=== PATIENT | female | born 1990 ===

== ENCOUNTER 2020-03-20 12:35 | Observation (INO) ==
[2020-03-20 11:14] LABS: Basophils # 0.1 K/mcL (0.0-0.2); Basophils % 0.9 %; Eosinophils # 0.1 K/mcL (0.0-0.6); Eosinophils % 0.7 %; Hematocrit 32.9 % (35.3-44.9); Hemoglobin 10.5 g/dL (11.5-15.4); Immature Granulocytes % 3.9 % (0-4); Lymphocytes # 1.4 K/mcL (0.6-4.6); Lymphocytes % 16.4 %; Mean Corpuscular HGB Conc 31.9 g/dL (31.6-35.5); Mean Corpuscular Hemoglobin 27.7 pg (28.0-33.3); Mean Corpuscular Volume 86.8 fL (83.0-100.0); Mean Platelet Volume 9.3 fL (9.4-12.4); Monocytes # 0.6 K/mcL (0.0-1.3); Platelet Count 278 K/mcL (140-400); Red Blood Count 3.79 M/mcL (3.82-4.97); Red Cell Distribution Width 14.5 % (11.5-14.5); Segmented Neutrophils % 71.1 %; White Blood Count 8.5 K/mcL (4.3-11.1)
[2020-03-20 11:28] LABS: Alanine Aminotransferase 7 Units/L (7-52); Aspartate Amino Transferase 12 Units/L (13-39); BUN/Creatinine Ratio 15 (6-26); Blood Urea Nitrogen 7 mg/dL (6-20); Lactate Dehydrogenase 113 Units/L (140-271); Uric Acid 4.6 mg/dL (2.3-7.6); eGFR For African Americans > 60 (> 60); eGFR For Non-African Americans > 60 (> 60)
[2020-03-20 11:49] LABS: Protein/Creatinine Ratio,Urine 0.2 mg/mg (0.00-0.20)
[2020-03-20] MEDS: Betamethasone Acet/SodPhos 30 MG/5 ML VIAL IM SCH (12:50)
[2020-03-20] MEDS ORDERED: Ringers Solution, Lactated 1,000 ML ONE (14:13)
[2020-03-21] MEDS: Betamethasone Acet/SodPhos 30 MG/5 ML VIAL IM SCH (12:29)
[2020-03-21 12:50] LABS: Total Volume 24 Hour,Urine 4.16 Liters (0.60-1.60)
== END 2020-03-21 12:42 | disposition home or self-care (01) ==
LOC: 1NENULAB
PROVIDERS: ADMIT Obstetrics & Gynecology; ATTEND Obstetrics & Gynecology

== ENCOUNTER 2020-04-19 08:00 | Inpatient (IN) ==
[2020-04-19] MEDS ORDERED: Famotidine 20 MG/2 ML VIAL IVP PRN (08:29)
[2020-04-19] MEDS ORDERED: Naloxone 0.4 MG/ML INJ IVP PRN (08:29)
[2020-04-19] MEDS ORDERED: Azithromycin 500 MG in 0.9 % Sodium Chloride 250 ML IVPB ONE (08:29)
[2020-04-19] MEDS ORDERED: *HR* FentaNYL (PF) 100 MCG/2 ML VIAL IVP PRN (08:29)
[2020-04-19] MEDS ORDERED: Ondansetron 4 MG/2 ML VIAL IVP PRN (08:29)
[2020-04-19] MEDS ORDERED: Metoclopramide 10 MG/2 ML VIAL IVP PRN (08:29)
[2020-04-19] MEDS ORDERED: Lidocaine 1% 20 ML MDV ID PRN (08:29)
[2020-04-19] MEDS ORDERED: Ringers Solution, Lactated 1,000 ML IVC SCH (08:30)
[2020-04-19] MEDS ORDERED: Oxytocin 20 units/ LR 1000 mL 20 UNIT/1,000 ML BAG IVC SCH ×2 (08:45→23:23)
[2020-04-19 08:53] LABS: Basophils # 0.1 K/mcL (0.0-0.2); Basophils % 0.6 %; Eosinophils # 0.1 K/mcL (0.0-0.6); Eosinophils % 0.8 %; Hematocrit 35.1 % (35.3-44.9); Immature Granulocytes % 2.2 % (0-4); Lymphocytes # 1.6 K/mcL (0.6-4.6); Lymphocytes % 16.1 %; Mean Corpuscular HGB Conc 31.3 g/dL (31.6-35.5); Mean Corpuscular Volume 86.2 fL (83.0-100.0); Mean Platelet Volume 9.8 fL (9.4-12.4); Monocytes # 0.9 K/mcL (0.0-1.3); Monocytes % 9.1 %; Platelet Count 253 K/mcL (140-400); Red Blood Count 4.07 M/mcL (3.82-4.97); Red Cell Distribution Width 15.2 % (11.5-14.5); Segmented Neutrophils % 71.2 %; White Blood Count 9.9 K/mcL (4.3-11.1)
[2020-04-19 08:55] LABS: Protein/Creatinine Ratio,Urine 0.31 mg/mg (0.00-0.20)
[2020-04-19 09:06] LABS: Alanine Aminotransferase 5 Units/L (7-52); Aspartate Amino Transferase 11 Units/L (13-39); BUN/Creatinine Ratio 14 (6-26); Blood Urea Nitrogen 6 mg/dL (6-20); Lactate Dehydrogenase 122 Units/L (140-271); Uric Acid 4.9 mg/dL (2.3-7.6); eGFR For African Americans > 60 (> 60); eGFR For Non-African Americans > 60 (> 60)
[2020-04-19 09:59] LABS: Amphetamine Screen,Urine Negative ng/mL (Cutoff=1000); Barbiturate Screen,Urine Negative ng/mL (Cutoff=200); Benzodiazepines Screen,Urine Negative ng/mL (Cutoff=200); Cannabinoid Screen,Urine Negative ng/mL (Cutoff = 50); Cocaine Screen,Urine Negative ng/mL (Cutoff= 300); Opiate Screen,Urine Negative ng/mL (Cutoff=300); Phencyclidine Screen,Urine Negative ng/mL (Cutoff=25)
[2020-04-19] MEDS ORDERED: EPHEDrine 50 MG/ML VIAL IVP PRN (12:14)
[2020-04-19] MEDS ORDERED: Epidural Premix (fent/bupiv) 110 ML EP SCH (12:15)
[2020-04-19] MEDS ORDERED: *HR* FentaNYL (PF) 100 MCG/2 ML VIAL ONE (16:06)
[2020-04-19] MEDS ORDERED: Ropivacaine/PF 0.2% 20 ML VIAL ONE (16:07)
[2020-04-19] MEDS ORDERED: Rho Immune Globulin 1,500 UNIT SYRINGE IM PRN (23:23)
[2020-04-20] MEDS ORDERED: Acetaminophen 325 MG TABLET PO SCH
[2020-04-20] MEDS: Ibuprofen 600 MG TABLET PO SCH ×3 (00:28→21:18)
[2020-04-20 06:56] LABS: Basophils # 0.1 K/mcL (0.0-0.2); Basophils % 0.4 %; Eosinophils # 0.1 K/mcL (0.0-0.6); Eosinophils % 0.7 %; Hematocrit 34.3 % (35.3-44.9); Hemoglobin 10.8 g/dL (11.5-15.4); Immature Granulocytes % 1.4 % (0-4); Lymphocytes # 1.7 K/mcL (0.6-4.6); Lymphocytes % 13.2 %; Mean Corpuscular HGB Conc 31.5 g/dL (31.6-35.5); Mean Corpuscular Hemoglobin 26.9 pg (28.0-33.3); Mean Corpuscular Volume 85.5 fL (83.0-100.0); Monocytes # 1.1 K/mcL (0.0-1.3); Monocytes % 8.2 %; Neutrophils # 9.8 K/mcL (1.6-8.9); Platelet Count 232 K/mcL (140-400); Red Blood Count 4.01 M/mcL (3.82-4.97); Red Cell Distribution Width 15.3 % (11.5-14.5); Segmented Neutrophils % 76.1 %; White Blood Count 12.9 K/mcL (4.3-11.1)
[2020-04-20 07:08] LABS: Alanine Aminotransferase 5 Units/L (7-52); Aspartate Amino Transferase 14 Units/L (13-39); BUN/Creatinine Ratio 12 (6-26); Blood Urea Nitrogen 5 mg/dL (6-20); Lactate Dehydrogenase 194 Units/L (140-271); Uric Acid 4.8 mg/dL (2.3-7.6); eGFR For African Americans > 60 (> 60); eGFR For Non-African Americans > 60 (> 60)
[2020-04-20] MEDS ORDERED: Prenatal Vit/FA 1 EACH TABLET PO SCH (09:00)
[2020-04-20] MEDS ORDERED: NIFEdipine XL (24 HR) 30 MG TAB.ER.24 PO ONE (14:54)
[2020-04-21] MEDS ORDERED: NIFEdipine XL (24 HR) 30 MG TAB.ER.24 PO SCH (09:00)
[2020-04-21 10:34] VITALS: BP 145/91
== END 2020-04-21 12:40 | disposition home or self-care (01) | DRG 560 ==
LOC: 1NENULAB 08:01 → 1NENUOBS 23:31
PROVIDERS: ADMIT Obstetrics & Gynecology; ATTEND Obstetrics & Gynecology